=== PATIENT | male | born 1990 | race Caucasian/White ===

== ENCOUNTER 2022-06-28 13:45 | Emergency (ER) | payer BC ==
[~2022-06-28] VITALS: Ht 177.8 cm; Wt 143.5 kg
[2022-06-28 13:46] VITALS: BP 128/95
[2022-06-28 14:35] LABS: BASOPHILS # (AUTO) 0.1 K/uL (0.00-0.22); BASOPHILS % (AUTO) 0.6 % (0.0-2.0); EOSINOPHILS # (AUTO) 0.1 K/uL (0-0.4); EOSINOPHILS % (AUTO) 0.9 % (0.0-4.0); HEMATOCRIT 45.4 % (36-52); HEMOGLOBIN 15.6 g/dL (12.0-18.0); LYMPHOCYTES # (AUTO) 1.8 K/uL (2.0-11.5); LYMPHOCYTES % (AUTO) 16.7 % (20.5-51.1); MEAN CORPUSCULAR HEMOGLOBIN 29 pg (27-31); MEAN CORPUSCULAR HGB CONC 34 g/dL (33-37); MEAN CORPUSCULAR VOLUME 83.6 fL (80-94); MONOCYTES # (AUTO) 0.7 K/uL (0.8-1.0); MONOCYTES % (AUTO) 6.7 % (1.7-9.3); NEUTROPHILS % (AUTO) 75.1 % (42.2-75.2); PLATELET COUNT (AUTO) 246 K/uL (140-450); RED BLOOD CELL COUNT(AUTO) 5.43 MIL/uL (4.20-6.10); RED CELL DISTRIBUTION WIDTH 14.3 % (11.6-13.7); WHITE BLOOD COUNT (AUTO) 10.6 K/uL (4.8-10.8)
[2022-06-28 14:45] LABS: ANION GAP 14.4 (8-16); CARBON DIOXIDE 26.9 mmol/L (21-32); CREATININE 1.2 mg/dL (0.6-1.3); POTASSIUM 4.3 mmol/L (3.5-5.1)
[2022-06-28 16:09] VITALS: BP 135/76
--- NOTE | 2022-06-28 16:09 | NUR ---
Patient discharged with v/s stable. Written and verbal after care instructions FOR SEIZURE given and explained. Patient verbalized understanding. Ambulatory with by parent. All questions addressed prior to discharge. Advised to follow up with PMD.
--- NOTE | 2022-06-28 16:11 | NUR ---
The patient's care was reviewed and supervised by [place] [facility], RN.
== END 2022-06-28 16:09 | disposition home or self-care (01) ==
LOC: MED 13:45
DX: R56.9 Unspecified convulsions (principal); Z88.0 Allergy status to penicillin; F84.0 Autistic disorder
CPT/HCPCS: 36415; 80048; 85025; 99283